=== PATIENT | female | born 1950 | race African-American/Black ===

== ENCOUNTER 2023-01-13 10:53 | Outpatient (CLI) | payer OTHER, SELFPAY ==
--- NOTE | ~2023-01-13 | XR_ITS ---
EXAMINATION: XR barium swallow modified DATE: 01/13/2023 11:31 INDICATION: Dysphagia. TECHNIQUE: The patient was given barium-containing material of multiple consistencies to swallow by t he speech pathologist while I performed fluoroscopy. Fluoroscopy exposure time was 1.6 minutes. The n umber of fluoroscopy images saved to the PACS was 1. Dose-area product was 0.909 Gy-cm^2. FINDINGS: There is flash laryngeal penetration with thin liquids. No aspiration. IMPRESSION: 1. Flash laryngeal penetration with thin liquids. No aspiration. 2. Please refer to the speech therapy report for recommendations. Reviewed, dictated and finalized at location A.
--- NOTE | 2023-01-13 12:06 | REHSTMBS ---
Assessment and note entered by Juliana Wheeler, PHARMACIST IN CHARGE Modified Barium Swallow Evaluation Feeding Type Recommended Oral Food Consistency Minced and Moist, Level 5 Liquid Consistency Mildly Thick (2) ST Clinical Summary MODIFIED BARIUM SWALLOW STUDY Kevin patient is a resident of [facility] and [facility]. She was seen for a Modified Barium Swallow study, according to her speech pathologist, secondary to an episode of thrush of the esophagus and was placed on stomach tube feedings. Since she had not consumed food/ liquid for three months, this MBS was administered to assess this patient's current risk for aspiration. Patient, herself, denied difficulty swallowing. Patient was viewed in the lateral position to the level of C5/C6. Patient was presented with thin liquid per spoon, then uncontrolled thin liquid per cup and also per straw, pudding mixed with semi-solid contrast medium per spoon, and then fruit cocktail and cracker pieces coated with the pudding mixture. There were two instances of trace touching of the entrance to the airway, possibly penetration into the very entrance of the airway with uncontrolled thin liquid however material went no further and was eliminated with the swallow. No residual was noted in the airway and none built up throughout this assessment. There was mild vallecular residue after the thicker materials were swallowed, however patient cleared this with subsequent swallows. Patient's swallowing skills are judged to be grossly within normal limits however she does exhibit a small/mild risk for aspiration on thin liquids. It is noted that she allowed herself only small bites and sips and this habit may be contributing to prevention of penetration/ aspiration. Results indicate this patient may have Minced and Moist Diet, Level 5, and Mildly Thick Liquids, Level 0. Patient has no dentition present and therefore would benefit most from the softer, smaller pieces of food. She should be monitored to ensure she continues to take small bites and sips
== END 2023-01-13 10:54 | disposition home or self-care (01) ==
PROVIDERS: PCP Internal Medicine
DX: R13.10 Dysphagia, unspecified (principal)
CPT/HCPCS: 92611